=== PATIENT | female | born 1960 | race Caucasian/White ===

== ENCOUNTER 2024-03-06 13:42 | Outpatient (AMB) | payer OTHER, MEDICAID, SELFPAY ==
--- NOTE | 2024-03-06 13:43 | MHC.OFFVIS ---
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 She completed physical therapy at [facility]. Patient has an acquired leg length discrepancy of left leg and uses walker at home and motorized scooter for long distances. Patient is following with Orthopedics at [facility], on chronic Bactrim suppression, and undergoes lab work every 6-8 weeks for CBC, CMP, ESR, and CRP. Most recent levels per PCP referral are elevated for ESR and CRP. Patient is not sure about durations of antibiotics and we do not have orthopedic clearance at this time for potential interventional therapy through our office. Patient reports she was following with pain management in [place] and was on oxycodone. She reports she also underwent multiple knee injections and had a stimulator placed in her left thigh with no pain relief. Patient states stimulator lead is still in her left thigh. Patient states she is not interested in interventional treatments but is here to discuss medical management and opioid program. I have informed patient that our Opiod Program is currently closed to new patients and recommended patient to discuss this with her PCP provider. 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 Severe obesity (BMI 35.0-39.9) with comorbidity Degenerative joint disease of knee Essential hypertension Surgical History (Updated 03/06/24 @ 13:55 by RAMIRO Bennett) History of Hx of repair of left rotator cuff (~2013) History of total right knee replacement (~2017) History of total left knee replacement (~2016) H/O total hysterectomy with bilateral salpingo-oophorectomy (BSO) (~1990) History of cholecystectomy (~2015) History of revision of total knee arthroplasty Social History Alcohol intake: never Patient Tobacco Use Status: Never used Tobacco Review of Systems Const All systems reviewed & are unremarkable except as noted in HPI and below Physical Exam General: Appears afebrile. Alert and oriented. Mood and affect appropriate. Follows and participates in conversation appropriately. Respiratory effort is unlabored. No cough. Able to transition from sit to stand unassisted. Sitting comfortably in motorized wheelchair. Left knee with long scar extending from thigh into lower leg. Results Reviewed Results Reviewed: No imaging reports are available for review today. Assessment & Plan Assessment & Plan (1) History of revision of total knee arthroplasty: Code(s): Z96.659 - Presence of unspecified artificial knee joint Category: Surgical (2) Infection of orthopedic implant: Code(s): T84.7XXA - Infection and inflammatory reaction due to other internal orthopedic prosthetic devices, implants and grafts, initial encounter Category: Medical (3) Chronic pain of left knee: Code(s): M25.562 - Pain in left knee; G89.29 - Other chronic pain Category: Medical Plan Briefly discussed interventional treatments once we receive Orthopedic clearance from [facility]. She has history of chronic left knee pain status post left TKA with multiple revisions and long-term antibiotic for infection of an orthopedic implant and frequent labs q6-8 weeks. We discussed neuromodulation with Sprint PNS trial, Curonix PNS trial and implant and RFA procedures. Patient reports she is currently has stimulator lead in her left thigh which has not been removed since she left [facility]. She is adamant that she does not want any further interventional treatments and is here for Opioid program. I have informed patient that our Opiod Program is currently closed to new patients and recommended patient to discuss this with her PCP provider. Follow up as needed. Coding Level of Care Code New Pt Level 3 (41320) Diagnoses History of revision of total knee arthroplasty Z96.659 Infection of orthopedic implant T84.7XXA Chronic pain of left knee M25.562; G89.29
[2024-03-06 13:52] VITALS: BP 140/78; PULSE 82; O2SAT 98; BMI 39.6
== END 2024-03-06 14:11 | disposition home or self-care (01) ==
PROVIDERS: PCP Internal Medicine; Referring Provider Internal Medicine; Visit Provider Nurse Practitioner Family
DX: G89.29 Other chronic pain (principal); M25.562 Pain in left knee; T84.7XXA Infection and inflammatory reaction due to other internal orthopedic prosthetic devices, implants and grafts, initial encounter; Z96.659 Presence of unspecified artificial knee joint
CPT/HCPCS: 99203

== ENCOUNTER → 2024-03-06 13:42 | Outpatient (BNVA) | payer OTHER, MEDICAID, SELFPAY | PROVIDERS: PCP Internal Medicine; Referring Provider Internal Medicine; Visit Provider Nurse Practitioner Family | DX: M25.562 Pain in left knee (principal); T84.7XXD Infection and inflammatory reaction due to other internal orthopedic prosthetic devices, implants and grafts, subsequent encounter; G89.29 Other chronic pain; Z96.659 Presence of unspecified artificial knee joint | CPT/HCPCS: 99202 ==